=== PATIENT | female | born 1990 | race Caucasian/White ===

== ENCOUNTER → 2018-05-28 | Outpatient (CLI) | payer BC ==
[~2018-05-28] MED LIST: BUSPIRONE HCL10 MG PO; CARVEDILOL12.5 MG PO; LABETALOL HCL100 MG PO; TRANDATE 200 M200 M1 PO; XANAX 0.5 MG0.5 MG PO
== END ==
LOC: M.ULTRA 09:25
DX: R94.5 Abnormal results of liver function studies (principal)

== ENCOUNTER 2018-07-07 00:14 | Observation (INO) | payer BC ==
[2018-07-07] VITALS (7 sets, daily range): BP systolic 121–149; BP diastolic 71–89
[~2018-07-07] VITALS: Ht 157.5 cm; Wt 79.4 kg
[2018-07-07] MEDS ORDERED: XANAX 0.5 MG0.5 MG PO (00:29)
[2018-07-07] MEDS ORDERED: BUSPIRONE HCL10 MG PO (00:29)
[2018-07-07] MEDS ORDERED: TRANDATE 200 M200 M1 PO (00:29)
[2018-07-07 00:51] LABS: ABSOLUTE BASOPHILS 0.1 thou/uL (0.0-0.2); ABSOLUTE EOSINOPHILS 0.3 thou/uL (0.0-0.7); ABSOLUTE LYMPHOCYTES 2.9 thou/uL (0.8-5.3); ABSOLUTE MONOCYTES 0.8 thou/uL (0.0-1.2); ABSOLUTE NEUTROPHILS 6.1 thou/uL (1.6-8.1); BASOPHILS 0.5 %; HEMOGLOBIN 12.2 gm/dL (12.0-15.0); LYMPHOCYTES 28.4 %; MCH 26.7 pg (26.0-34.0); MCHC 32.2 g/dL (28.0-37.0); MONOCYTES 8.3 %; MPV 10.5 fl. (7.2-11.1); NUCLEATED RBCS 0 /100WBC; PLATELET COUNT* 260 thou/uL (150-400); POLYS 59.8 %; RBC 4.58 mil/uL (4.20-5.00); RDW-CV 14.4 % (10.5-14.5); WBC 10.1 thou/uL (4.0-11.0)
[2018-07-07 00:55] LABS: ANION GAP 10 mmol/L (7-16); BUN 14 mg/dL (7-18); CALCIUM 8.8 mg/dL (8.5-10.1); CHLORIDE 104 mmol/L (98-107); CO2 25 mmol/L (21-32); CREATININE 0.8 mg/dL (0.6-1.3); GLUCOSE 98 mg/dL (70-99); POTASSIUM 3.6 mmol/L (3.5-5.1); SODIUM 139 mmol/L (136-145)
[2018-07-07 00:59] LABS: INR 1.1; PROTIME 11.1 Seconds (9.20-11.50)
[2018-07-07 01:05] LABS: ALKALINE PHOSPHATASE 120 U/L (46-116); NT-PRO BRAIN NAT PEPTIDE 34 pg/mL (<300); SGOT 23 U/L (15-37); SGPT 39 U/L (30-65); TOTAL BILIRUBIN 0.3 mg/dL (<0.1-1.0); TOTAL PROTEIN 7.6 g/dL (6.4-8.2); TROPONIN-I LEVEL <0.06 ng/mL (<0.06)
[2018-07-07 09:34] LABS: CHOLESTEROL 140 mg/dL (<200); HDL CHOLESTEROL 48 mg/dL (>40); LDL CHOLESTEROL 87 mg/dL (<100); SERUM ASSESSMENT Clear; TC:HDL 2.9 Ratio (Not establshd); TRIGLYCERIDE 29 mg/dL (<150); VLDL 6 mg/dL (<40)
--- NOTE | 2018-07-07 11:38 | EKG ---
[place] [address] ELECTROCARDIOGRAM REPORT Name: LY HASSAN Room: [place] [address] ADM IN [facility]#: [id number] Admission: 07/07/18 Attend Phys: [place] Discharge: Date of : 89 Report #: [id number] THIS REPORT FOR: //name// [facility] ED Test Date: 2018-07-07 Test Time: 00:22:41 Pat Name: LY HASSAN Department: Room: [facility] Gender: F Continuous Improvement Consultant: GORDON : 1990 Requested By: Олег Mccrary Order Number: [id number] MD: Derek Riley Measurements Intervals [place] Rate: 125 P: 65 MN: 139 QRS: 26 QRSD: 94 T: 44 QT: 320 QTc: 462 Interpretive Statements Sinus tachycardia No previous ECG available for comparison Electronically Signed On 07-07-2018 11:37:45 GUEST RELATIONS COORDINATOR by Derek Riley [email or web address] <ELECTRONICALLY SIGNED> By: Derek Riley MD, [facility] 07/07/18 1137 0022 0022 Derek Riley MD, FACC /EPI
[2018-07-07 13:19] LABS: T3 UPTAKE 23 % (24-39)
[2018-07-07] MEDS ORDERED: CARVEDILOL12.5 MG PO (13:42)
[2018-07-07] MEDS ORDERED: LABETALOL HCL100 MG PO (14:16)
--- NOTE | 2018-07-07 14:52 | 2DMMODE ---
[place] [address] 2 D/M-MODE ECHOCARDIOGRAM Name: LY HASSAN Room: [address] Julia#: [id number] Admission: 07/07/18 Attend Phys: Ej Cruz Discharge: Date of : 89 Date of Service: 07/07/18 1451 Report #: [id number] THIS REPORT FOR: //name// APPROVED REPORT Study performed: 07/07/2018 11:01:34 EXAM: Comprehensive 2D, Doppler, and color-flow Echocardiogram Patient Location: In-Patient Room #: [facility] Status: routine BSA: 1.81 HR: 100 bpm BP: 121/71 mmHg Rhythm: NSR Other Information Study Quality: Good Indications Palpitations Tachycardia Chest Pain 2D Dimensions IVSd: 8.62 (7-11mm) LVOT Diam: 19.12 (18-24mm) LVDd: 43.55 mm PWd: 7.43 (7-11mm) Ascending Ao: 24.71 (22-36mm) LVDs: 26.63 (25-40mm) Aortic Root: 28.29 mm Volumes Left Atrial Volume (Systole) LA ESV Index: 23.22 mL/m2 Aortic Valve AoV Peak Yair.: 1.53 m/s AO Peak Gr.: 9.41 mmHg LVOT Max P.68 mmHg AO Mean Gr.: 5.15 mmHg LVOT Mean P.76 mmHg LVOT Max V: 1.19 m/s AO V2 VTI: 28.59 cm LVOT Mean V: 0.76 m/s YVES (VTI): 2.63 cm2 LVOT V1 VTI: 26.21 cm Mitral Valve E/A Ratio: 1.13 [place] [address] 2 D/M-MODE ECHOCARDIOGRAM Name: LY HASSAN Room: [address] Cody Dumont#: [id number] Admission: 07/07/18 Attend Phys: Ej Cruz Discharge: Date of : 89 Date of Service: 07/07/18 1451 Report #: [id number] MV Decel. Time: 140.89 ms MV E Max Yair.: 1.20 m/s MV PHT: 40.86 ms MVA (PHT): 5.38 cm2 TDI E/Lateral E': 6.00 E/Medial E': 6.00 Medial E' Yair.: 0.20 m/s Lateral E' Yair.: 0.20 m/s Pulmonary Valve PV Peak Yair.: 1.03 m/s PV Peak Gr.: 4.24 mmHg Tricuspid Valve RAP Estimate: 5.00 mmHg TR Peak Gr.: 23.58 mmHg RVSP: 28.00 mmHg PA Pressure: 28.00 mmHg Left Ventricle The left ventricle is normal size. There is normal LV segmental wall motion. There is normal left ventricular wall thickness. Left ventricular systolic function is normal. The left ventricular ejection fraction is within the normal range. LVEF is 60-65%. The left ventricular diastolic function is normal. Right Ventricle The right ventricle is normal size. The right ventricular systolic function is normal. Atria The left atrium size is normal. The right atrium size is normal. Aortic Valve The aortic valve is normal in structure. No aortic regurgitation is present. There is no aortic valvular stenosis. Mitral Valve The mitral valve is normal in structure. Mild mitral regurgitation. No evidence of mitral valve stenosis. Tricuspid Valve The tricuspid valve is normal in structure. Mild tricuspid regurgitation. No pulmonary hypertension[place] [address] 2 D/M-MODE ECHOCARDIOGRAM Name: LY HASSAN [address] [id number] Admission: 07/07/18 Attend Phys: Ej Cruz Discharge: Date of : 89 Date of Service: 07/07/18 1451 Report #: [id number] The pulmonary valve is normal in structure. There is no pulmonic valvular regurgitation. Great Vessels The aortic root is normal in size. IVC is normal in size and collapses >50% with inspiration. Pericardium There is no pericardial effusion. <Conclusion> Left ventricular systolic function is normal. The left ventricular ejection fraction is within the normal range. <ELECTRONICALLY SIGNED> By: Derek Riley MD, FACC 07/07/181450 50 50 Derek Riley MD, FACC /INF
[2018-07-07 21:10] LABS: GLYCOHEMOGLOBIN (HGB A1C) 5.4 % (4.8-5.6)
--- NOTE | 2018-07-08 12:55 | CON ---
[address] [address] CONSULTATION Name: LY HASSAN Room: [address] Cody Dumont#: [id number] Admission: 07/07/18 Attend Phys: [place] Discharge: 07/07/18 Date of : [birth year] Report #: [id number] THIS REPORT FOR: //name// CC: Sabrina Cruz DATE OF SERVICE: 07/07/2018 HISTORY OF PRESENT ILLNESS: The patient is a 27-year-old white female who I was asked to see in the hospital today after she complained of palpitations. The patient has a long history of palpitations. She actually saw my partner, Dr. Peters, last spring. She wore a Zio patch that showed no significant arrhythmias. She had minimal PVCs and PACs. She underwent an echocardiogram that showed normal left ventricular function. No medications were prescribed. The patient does not exercise on a regular basis. However, last night about midnight she felt a pressure in her chest. She has had some heaviness of her arms and face. It would come and go. She also notes her heart rate was increasing. She took a Xanax. Recently, she has noted occasional skipped beats, but no syncope. She does get short of breath with exertion, but has had no edema. She denied any recent trauma to her chest. She had no rash. The pain was not related to food. She has had no blood in her stool. She came to the Emergency Room and was admitted. PAST MEDICAL HISTORY: She is a , last menstrual period was less than a month ago. She has had cholecystectomy. She does have a history of hypertension, no diabetes or hyperlipidemia. MEDICATIONS: Consists of labetalol, sertraline, Xanax as needed, BuSpar. ALLERGIES: SHE HAS A PREVIOUS INTOLERANCE TO STADOL. FAMILY HISTORY: Negative for heart disease. SOCIAL HISTORY: She is . She and her live in [place], [place]. 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 No alcohol abuse, no smoking. Rarely drinks coffee. No illicit drug use. REVIEW OF SYSTEMS: She has had no history of headaches, sweating spells, stroke, asthma, peptic ulcer disease, liver disease, kidney disease, cancer, recent psychiatric illness. No chronic skin condition. She does wear glasses. PHYSICAL EXAMINATION: GENERAL: Revealed a young white female lying in bed. She appeared in no distress. VITAL SIGNS: She had a blood pressure of 120/70, pulse was initially 120, [place] [address] CONSULTATION Name: LY HASSAN Room: [address] Cody Dumont#: [id number] Admission: 07/07/18 Attend Phys: [place] Discharge: 07/07/18 Date of : 89 Report #: [id number] now 110. She is afebrile. HEENT: She was anicteric, conjunctivae pink. Mucous membranes moist. NECK: Supple. CHEST: Clear to auscultation. CARDIAC: Regular rate and rhythm. No significant murmur or gallop. ABDOMEN: Soft. EXTREMITIES: Had no edema. Dorsalis pedis pulses 1+ bilaterally. SKIN: Warm, dry. NEUROLOGIC: Nonfocal. DIAGNOSTIC DATA: Her ECG on admission showed sinus tachycardia, nonspecific ST-segment changes. Workup last night in the Emergency Room, she had a portable chest x-ray that showed normal heart size and clear lung orta. LABORATORY DATA: Sodium 139. Liver function studies were normal. Troponin 0.06. TSH 1.7. White blood cell count 10.1, hemoglobin 12.2. IMPRESSION AND RECOMMENDATIONS: 1. Chest pain. Suspect noncardiac. Recommend no further cardiac workup. 2. Palpitations. The patient is noted to have episodes of sinus tachycardia. The patient is on a beta bon. I would recommend she avoid dehydration. 3. Hypertension. The patient is on a beta bon. <ELECTRONICALLY SIGNED> By: Derek Riley MD, FACC 07/08/18 1255 1213 [id number] Riley MD, FACC /nt
== END 2018-07-07 15:20 | disposition home or self-care (01) ==
LOC: M.ERS 00:14 → M.TBA-ER 01:50 → M.2W 01:50
PROVIDERS: Emergency Medicine; Family Medicine; ADMIT Internal Medicine
DX: R07.9 Chest pain, unspecified (principal); F41.1 Generalized anxiety disorder; F41.0 Panic disorder [episodic paroxysmal anxiety]; I47.1 Supraventricular tachycardia; I10 Essential (primary) hypertension; E78.5 Hyperlipidemia, unspecified; I49.3 Ventricular premature depolarization; I49.1 Atrial premature depolarization; Z98.890 Other specified postprocedural states; Z79.899 Other long term (current) drug therapy; Z90.49 Acquired absence of other specified parts of digestive tract; Z23 Encounter for immunization